=== PATIENT | female | born 1950 | race Hispanic/Latino ===

== ENCOUNTER → 2025-04-15 | Outpatient (CLI) | payer OTHER ==
--- NOTE | 2025-04-16 10:03 | HMCIMG ---
EXAMINATION: CT right Wrist without IV contrast CLINICAL HISTORY: Patient presents with right wrist pain. COMPARISON: None provided. TECHNIQUE: Axial images were acquired through the right wrist without IV contrast. Reformatted images were reviewed. FINDINGS: BONES: No acute fracture or aggressive appearing osseous lesion. Generalized osteopenia. JOINTS: No dislocation. The joint spaces are normal. Carpal alignment is normal. SOFT TISSUES: The soft tissues are unremarkable. IMPRESSION: Generalized osteopenia. No acute fracture or dislocation. No significant degenerative changes. /[place]
== END | disposition home or self-care (01) ==
LOC: RAH 10:14
PROVIDERS: ATTEND Student in an Organized Health Care Education/Training Program
DX: M85.841 Other specified disorders of bone density and structure, right hand (principal); M25.531 Pain in right wrist
CPT/HCPCS: 73200